=== PATIENT | female | born 1980 | race Caucasian/White ===

== ENCOUNTER 2017-03-17 08:58 | Emergency (ER) | payer OTHER ==
[~2017-03-17] VITALS: Ht 170.2 cm; Wt 81.6 kg
[2017-03-17 09:04] VITALS: BP_SYST 136
[2017-03-17 10:55] VITALS: BP_SYST 135
[2017-03-17] MEDS: IBUPROFEN 600 MG TABLET PO ONE (10:55)
== END 2017-03-17 10:55 | disposition home or self-care (01) ==
LOC: SED 08:58
DX: S13.9XXA Sprain of joints and ligaments of unspecified parts of neck, initial encounter (principal); S20.219A Contusion of unspecified front wall of thorax, initial encounter; M25.512 Pain in left shoulder; Z88.8 Allergy status to other drugs, medicaments and biological substances; V49.9XXA Car occupant (driver) (passenger) injured in unspecified traffic accident, initial encounter; Y93.89 Activity, other specified; Y92.410 Unspecified street and highway as the place of occurrence of the external cause; Y99.8 Other external cause status
CPT/HCPCS: 71020-TC; 72050-TC; 73030; 81025; 99284

== ENCOUNTER 2021-12-04 10:08 | Emergency (ER) | payer OTHER ==
[~2021-12-04] VITALS: Ht 170.2 cm; Wt 90.7 kg
[2021-12-04 10:54] VITALS: BP_SYST 120
[2021-12-04] MEDS ORDERED: ONDANSETRON 4 MG ODT TAB PO ONE (12:45)
[2021-12-04] MEDS ORDERED: MAG HYDROX/AL HYDROX/SIMETH 30 ML, LIDOCAINE VISCOUS 2% 15ML (PO) 15 ML, DICYCLOMINE HC... PO ONE ×3 (12:45)
--- NOTE | 2021-12-04 12:45 | NUR ---
BIBS WITH C/C OF NEEDING TO BE EVALUATED BY PMD FOR CHOLECYSTITIS, PANCREATITIS, GASTRITIS. PT REPORTS PAIN LEVEL 8/10 FROM RUQ. NAD NOTED. PT REPORTS HX OF DIARRHEA WITH SOME BURGUNDY TYPE COLORED STOOLS, NO MELENA REPORTED. SEEN BY DR. POWELL.
--- NOTE | 2021-12-04 12:45 | NUR ---
pt presents to the ER BIb self from home CC RUQ Pain Pt c/o explosive diarrhea for pat 3 weeks. Nausea and episodes of vomiting. Pt has poor appetite mild headacheand dark stools with coffee colored stools. Pt has been fatigue and diaphretic, SOB with minimal exertion.
[2021-12-04 12:46] LABS: CALCIUM 10.1 mg/dL (8.4-11.0); CREATININE 0.78 mg/dL (0.55-1.30)
[2021-12-04] MEDS ORDERED: DICYCLOMINE HCL 10 MG/5 ML SOLUTION ONE ×2 (12:49)
[2021-12-04] MEDS ORDERED: MAG-AL HYDROX/SIMETH 30 ML UDC ONE (12:49)
[2021-12-04] MEDS ORDERED: LIDOCAINE 2%, 20 ML MDV ONE (12:51)
[2021-12-04 12:52] LABS: ALBUMIN 3.4 g/dL (3.4-4.8); TOTAL BILIRUBIN 0.5 mg/dL (0.0-1.0)
[2021-12-04 12:58] LABS: BASOPHILS # (AUTO) 0.1 K/uL (0.0-0.2); BASOPHILS % (AUTO) 0.7 % (0.0-2.0); EOSINOPHILS # (AUTO) 0.2 K/uL (0.0-0.4); EOSINOPHILS % (AUTO) 2.3 % (0.0-4.0); HEMATOCRIT 38.5 % (36-48); LYMPHOCYTES # (AUTO) 1.9 K/uL (1.0-5.5); LYMPHOCYTES % (AUTO) 24.2 % (20.5-51.5); MEAN CORPUSCULAR VOLUME 86 fL (79.0-98.0); MONOCYTES # (AUTO) 0.7 K/uL (0.0-1.0); MONOCYTES % (AUTO) 8.7 % (1.7-9.3); NEUTROPHILS # (AUTO) 5.1 K/uL (1.8-7.7); NEUTROPHILS % (AUTO) 64.1 % (40.0-70.0); PLATELET COUNT (AUTO) 462 K/uL (130-430); RED CELL DISTRIBUTION WIDTH 13.2 % (9.0-15.0)
--- NOTE | 2021-12-04 13:00 | NUR ---
IKE Pierson at bedside examining patient.
[2021-12-04] MEDS ORDERED: LIDOCAINE VISCOUS 2%, 15 ML UDC ONE (13:17)
--- NOTE | 2021-12-04 13:45 | NUR ---
Patient given written and verbal discharge instructions and verbalizes understanding. ER MD discussed with patient the results and treatment provided. Patient in stable condition. ID arm band removed. Patient educated on pain management gastritis. Opportunity for questions provided and answered. Medication side effect fact sheet provided. Pt received CD of ultrasound results from lab.
[2021-12-04] MEDS ORDERED: OMEP40CA20 PO (14:58)
[2021-12-04] MEDS ORDERED: DICY10CA13 PO (14:58)
[2021-12-04 15:03] LABS: MEAN CORPUSCULAR HEMOGLOBIN 29 pg (27-31); MEAN CORPUSCULAR HGB CONC 33 % (32-36)
--- NOTE | 2021-12-04 16:52 | NUR ---
Randy zuniga in [facility] - 12/04/21 at 1652 by OSCARNDESTINEY IKE Garcia at bedside examining patient.
[2021-12-04 16:54] VITALS: BP_SYST 120
== END 2021-12-04 13:45 | disposition home or self-care (01) ==
LOC: SED 10:08
DX: K29.70 Gastritis, unspecified, without bleeding (principal); R10.11 Right upper quadrant pain; R11.2 Nausea with vomiting, unspecified; R19.7 Diarrhea, unspecified; Z88.5 Allergy status to narcotic agent; Z79.899 Other long term (current) drug therapy
CPT/HCPCS: 99285; 76705; 80053; 83690; 85025; 36415; 93005; 74018; Q0162; J2001 ×2